=== PATIENT | male | born 1980 | race Two or more races ===

== ENCOUNTER → 2020-10-10 12:03 | Outpatient (BNVA) | payer OTHER, SELFPAY | PROVIDERS: Visit Provider Physician Assistant Medical | DX: M54.5 Low back pain (principal) | CPT/HCPCS: 99202 ==

== ENCOUNTER 2020-10-10 12:29 | Emergency (ER) | payer OTHER, SELFPAY ==
[2020-10-10 13:29] VITALS: BP 145/98; PULSE 72; RESP 18; TEMP 36.7; O2SAT 97; BMI 31.5
[2020-10-10 14:27] VITALS: BP 143/105; PULSE 85; RESP 18; O2SAT 96
--- NOTE | 2020-10-10 14:35 | ED.BACK ---
HPI - Back Pain/Injury General Chief Complaint: Back Pain/Injury Stated Complaint: Back pain, nausea/dizzy Time Seen by Provider: 10/10/20 14:06 Source: patient Mode of arrival: ambulatory History of Present Illness HPI Narrative: 40-year-old male with past medical history of back pain presenting to the ED complaining of acute on chronic left-sided low back pain radiating down left lower extremity s/p moving an AC at work yesterday. Admits felt pain immediately after heavy lifting. Denies direct injury/trauma or fall. Admits to associated paresthesias in feet, and nausea today. Denies fever, chills, weakness, urinary incontinence/retention, abdominal pain MD elicited complaint: back pain and back injury Related Data Previous Rx's Medication Instructions Recorded acetaminophen [Tylenol Extra 500 mg PO Q6H PRN #20 tab 10/10/20 Strength] cyclobenzaprine 5 mg PO Q8H PRN 5 Days #14 tab 10/10/20 lidocaine [Lidoderm] 1 patch TOPICAL DAILY PRN #30 ea 10/10/20 MDD remove after 12 hours naproxen 500 mg PO BID PRN 10 Days #20 tab 10/10/20 ondansetron HCl [Zofran] 4 mg PO Q8H PRN #10 tab 10/10/20 tramadol 50 mg PO Q8H PRN 3 Days #9 tab 10/10/20 Allergies Allergy/AdvReac Type Severity Reaction Status Date / Time No Known Allergies Allergy Verified 10/10/20 13:29 Review of Systems Review of Systems: Constitutional: No Fever, No Chills, No Fatigue, No Malaise Cardiovascular: No Chest Pain, No SOB Respiratory: No Cough, No Dyspnea Gastrointestinal: + Nausea, No Vomiting, No Diarrhea, No Abdominal pain Genitourinary: No Dysuria, No Hematuria,No Urinary Incontinence/retention, No Urgency, No Flank Pain Musculoskeletal: + joint pain, No Myalgias, No Joint Swelling Skin: No Skin Lesions, No rash Neuro: No Weakness, No Numbness, + Paresthesias Yes all other systems are reviewed and are negative Neurologic: Denies Sensory deficit (Neuro) [facility] Past Medical History Attestation statement: The following information was validated with the patient. Social History Social History Advance Directives: Yes Advance Directives Information Provided: Yes Advance Directives on File: No Physical Exam Vital Signs: Vital Signs: Last Vital Signs Temp 98.1 F 10/10/20 13:29 Pulse 85 10/10/20 14:27 Resp 18 10/10/20 14:27 BP 143/105 H 10/10/20 14:27 Pulse Ox 96 10/10/20 14:27 Body Mass Index 31.5 Const: General: cooperative, healthy appearing and no acute distress Orientation/consciousness: patient oriented x3 Limitations: no limitations HENMT: Head: Yes normal to inspection Ears: hearing grossly normal bilaterally General nose exam: Normal external nose present Face and sinus: Yes normal facial exam Eyes: General: appearance normal, both eyes and all related structures EOM: EOMs intact bilaterally Neck: Neck: Yes normal visual inspection, Yes full ROM and Yes no meningeal signs Resp: Effort & Inspection: normal respiratory effort and no respiratory distress Cardio: Rate: regular rate Peripheral pulses: dorsalis pedis present GI: Inspection: Yes normal to inspection Palpation (GI): Soft to palpation, nontender, no guarding and not rigid Back/Spine/Pelvis: Other: No midline thoracic/lumbar spinous tenderness or step-offs. + left-sided lower lumbar MSK tenderness to palpation with visible muscle spasming Skin: Rashes: no rashes Wounds: no wounds Neuro: Other: Ambulating with steady gait, strength intact throughout, no saddle anesthesia General: patient oriented x3, tone normal, moves all extremities and no meningeal signs Gait exam (Neuro): Normal gait present Motor exam (neuro): 5/5 motor strength present throughout and Normal motor muscle tone present throughout Sensory Exam: No Sensory deficit (Neuro) Extrem: General: Yes normal to inspection MDM - Back Pain/Injury MDM Narrative Medical decision making narrative: 40-year-old male with past medical history of back pain presenting to the ED complaining of acute on chronic left-sided low back pain radiating down left lower extremity s/p moving an AC at work yesterday. On exam mildly hypertensive likely from pain, NAD/nontoxic, no midline spinous tenderness, no red flag symptoms, ambulating with steady gait. Likely MSK pain/strain. Low concern for cauda equina/cord compression or fracture. Nausea likely secondary to pain, low concern for appendicitis/diverticulitis or pancreatitis Plan: Symptomatic treatment, SHANTE Jackson home to follow-up with PCP Discharge Plan Discharge Clinical Impression: Strain of lumbar region Qualifiers: Encounter type: initial encounter Qualified Code(s): S39.012A - Strain of muscle, fascia and tendon of lower back, initial encounter Sciatica Qualifiers: Laterality: left Qualified Code(s): M54.32 - Sciatica, left side Patient Disposition: Home, Self-Care Instructions: Acute Low Back Pain (ED) Additional Instructions: Your pain is likely musculoskeletal Zofran as antinausea medication, take as needed Flexeril is a muscle relaxer, take at night as it makes you drowsy, do not drive, drink alcohol, or operate machinery while taking it Naproxen as an anti-inflammatory / pain medication, take with food Lidoderm patches are numbing patches, apply to painful area In addition take Tylenol at home Tramadol as an opiate pain medication, take only when pain is severe in the next 3 days If symptoms persist or worsen, pain becomes unbearable, you developed urinary retention or incontinence, or weakness return to the ED Prescriptions: New ondansetron HCl [Zofran] 4 mg tablet 4 mg PO Q8H PRN (Reason: nausea and vomiting) Qty: 10 RF: 0 acetaminophen [Tylenol Extra Strength] 500 mg tablet 500 mg PO Q6H PRN (Reason: pain or fever) Qty: 20 RF: 0 lidocaine [Lidoderm] 5 % adhesive patch,medicated 1 patch topical DAILY MDD remove after 12 hours PRN (Reason: pain) Qty: 30 RF: 0 naproxen 500 mg tablet 500 mg PO BID PRN (Reason: pain) 10 Days Qty: 20 RF: 0 cyclobenzaprine 5 mg tablet 5 mg PO Q8H PRN (Reason: pain (scale score 7-10)) 5 Days Qty: 14 RF: 0 tramadol 50 mg tablet 50 mg PO Q8H PRN (Reason: pain, severe) 3 Days Qty: 9 RF: 0 Referrals: Physician,Unknown [Primary Care Provider] - 2 days Stand Alone Forms: Work/School Release
== END 2020-10-10 15:03 | disposition home or self-care (01) ==
PROVIDERS: Emergency Provider Emergency Medicine
DX: S39.012A Strain of muscle, fascia and tendon of lower back, initial encounter (principal); M54.32 Sciatica, left side; X50.0XXA Overexertion from strenuous movement or load, initial encounter; Y93.9 Activity, unspecified; Y92.89 Other specified places as the place of occurrence of the external cause; Y99.0 Civilian activity done for income or pay
CPT/HCPCS: 99283

== ENCOUNTER → 2020-10-16 11:09 | Outpatient (BNVA) | payer OTHER, SELFPAY | PROVIDERS: Visit Provider Physician Assistant | DX: M54.16 Radiculopathy, lumbar region (principal) | CPT/HCPCS: 72100; 99203 ==

== ENCOUNTER → 2020-10-23 08:01 | Outpatient (BNVA) | payer OTHER, SELFPAY | PROVIDERS: Visit Provider Physician Assistant Medical | DX: S39.012D Strain of muscle, fascia and tendon of lower back, subsequent encounter (principal); X58.XXXD Exposure to other specified factors, subsequent encounter | CPT/HCPCS: 99213 ==

== ENCOUNTER → 2020-10-30 08:16 | Outpatient (BNVA) | payer OTHER, SELFPAY | PROVIDERS: Visit Provider Physician Assistant Medical | DX: S39.012D Strain of muscle, fascia and tendon of lower back, subsequent encounter (principal); X58.XXXD Exposure to other specified factors, subsequent encounter | CPT/HCPCS: 99213 ==

== ENCOUNTER → 2020-11-07 08:33 | Outpatient (BNVA) | payer OTHER, SELFPAY | PROVIDERS: Visit Provider Physician Assistant Medical | DX: S39.012D Strain of muscle, fascia and tendon of lower back, subsequent encounter (principal); X58.XXXD Exposure to other specified factors, subsequent encounter; M54.16 Radiculopathy, lumbar region | CPT/HCPCS: 99213 ==

== ENCOUNTER → 2020-11-23 08:13 | Outpatient (BNVA) | payer OTHER, SELFPAY | PROVIDERS: Visit Provider Physician Assistant Medical | DX: S33.9XXD Sprain of unspecified parts of lumbar spine and pelvis, subsequent encounter (principal); X58.XXXD Exposure to other specified factors, subsequent encounter; M54.17 Radiculopathy, lumbosacral region | CPT/HCPCS: 99213 ==

== ENCOUNTER 2020-11-24 09:00 | Outpatient (RCR) | payer OTHER, SELFPAY ==
--- NOTE | 2020-10-27 11:35 | MHC.PT.EP ---
[facility] [place] Office [place] Office [place] Office [address] Marie Williamson [address] [phone] F: [phone] F: [phone] F: [phone] F: [phone] Physical Therapy Plan of Care Date of Evaluation: Date of Surgery: N/A Diagnosis: Low back radiculopathy Moving an A/C, picked it up from the floor and received a shooting pain, mostly on the left side. pt reports he went home immediately after the injury occurred. Assessment: Pt is a 40 year old male who presents to therapy with symptoms of lumbar radiculopathy (L>R). The pain started after an accident in work where he picked an A/C up from the floor and received a sharp pain in the back. He dropped the A/C and discontinued work right after the incident. He reports numbness and tingling that travels from the low back into the L LE into the foot. Self reported activity limitations include ability to work, walk long distances and sit or relax >30 min, reports difficulty pushing, pulling, lifting and reaching. reports disrupted sleep. He presents with significant limitation in lumbar extension 2* to pain and has slight limitations in flexion and L lateral flexion. Pt will continue therapy for 2x / week for 4 weeks and will be reassessed to see if further treatment is necessary. Frequency and Duration: The patient will be seen 2x/week for 4 weeks Short Term Goals: Pt will increase lumbar extension ROM to 25% in 2 weeks to promote increased ability to perform work tasks. 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 Senior Care Goals: Pt will report centralization of pain in 4 weeks in order to return to work multimedia production assistant, full duty. Pt will be able to walk >30 min with no pain in 4 weeks to walk longer periods of time for work. Treatment Plan: Modalities to reduce pain, spasms and effusion. Manual therapy to restore motion and function. Therapeutic exercise to improve strength and flexibility. Neuromuscular re-education for posture and balance. Therapeutic activities to return to functional activities of daily living. Electronically signed by: Sindhu Holt PT, DPT Please sign and return to therapist. Thank you for your referral.
== END 2020-12-18 14:57 | disposition home or self-care (01) ==
LOC: HO.PT 09:00
PROVIDERS: Visit Provider Physician Assistant Medical
DX: M54.16 Radiculopathy, lumbar region (principal)
CPT/HCPCS: 97012; 97014; 97110; 97140; 97162; 97535

== ENCOUNTER → 2020-12-01 07:58 | Outpatient (BNVA) | payer OTHER, SELFPAY | PROVIDERS: Visit Provider Physician Assistant Medical | DX: S33.9XXD Sprain of unspecified parts of lumbar spine and pelvis, subsequent encounter (principal); X58.XXXD Exposure to other specified factors, subsequent encounter; M54.17 Radiculopathy, lumbosacral region | CPT/HCPCS: 99213 ==

== ENCOUNTER 2020-12-05 15:26 | Outpatient (REF) | payer OTHER, SELFPAY ==
--- NOTE | ~2020-12-05 | MR_ITS ---
EXAMINATION: MR LUMBAR SPINE WITHOUT CONTRAST CLINICAL INFORMATION: Pain lumbar spine, radiculopathy. COMPARISON: None TECHNIQUE: MRI of the lumbar spine was obtained using routine sequences without contrast. FINDINGS: The lumbar vertebral bodies maintain normal heights and alignment. The disc heights are preserved. No bone marrow edema is seen. The distal spinal cord appears normal. The conus medullaris terminates normally at the L1 level. There is no disc herniation. The spinal canal and neural foramina are patent. No nerve root compression is seen. There is no significant facet degeneration. The visualized paraspinal muscles and intra-abdominal and pelvic contents are within normal limits. MR/MR lumbar spine wo con IMPRESSION: No significant abnormality identified in the lumbar spine. No spinal canal stenosis or nerve root compression.
== END 2020-12-05 15:27 | disposition home or self-care (01) ==
LOC: HO.MRI 15:26
PROVIDERS: Visit Provider Internal Medicine
DX: M54.5 Low back pain (principal)
CPT/HCPCS: 72148

== ENCOUNTER 2022-03-03 03:06 | Emergency (ER) | payer OTHER, SELFPAY ==
--- NOTE | ~2022-03-03 | XR_ITS ---
EXAMINATION: XR CHEST CLINICAL INFORMATION: Shortness of breath. COMPARISON: None TECHNIQUE: 2 views of the chest were obtained. FINDINGS: Normal appearance of the cardiomediastinal structures. No effusions or pneumothoraces. Normal pattern of pulmonary vasculature. No focal pulmonary consolidation. No skeletal abnormalities identified. XR/XR chest 2V IMPRESSION: Normal chest. Lungs clear.
[2022-03-03 03:20] VITALS: BP 143/85; PULSE 83; RESP 18; TEMP 37.2; O2SAT 99; BMI 33.9
--- NOTE | 2022-03-03 03:23 | ECG_ITS ---
Test Reason : chest pain Blood Pressure : / mmHG Vent. Rate : 077 BPM Atrial Rate : 077 BPM P-R Int : 130 ms QRS Dur : 090 ms QT Int : 414 ms P-R-T Axes : 026 031 071 degrees QTc Int : 468 ms Normal sinus rhythm Normal ECG No previous ECGs available Referred By: Generic ED Physician Electronically Signed By:TEODORO JOSHI MD
[2022-03-03 03:42] LABS: MANUAL DIFF FLAG NO
[2022-03-03 03:43] LABS: Basophils Percent Auto 0.3 % (0-2); Eosinophils Percent Auto 0.1 % (0-4); Hematocrit 45.4 % (42.0-52.0); Hemoglobin 15.8 g/dl (14.0-18.0); Imm Gran Abs Auto 0.04 X10*3/uL (0.00-0.03); Imm Gran Pct Auto 0.3 % (0.0-0.4); Lymphocytes Absolute Auto 1.7 X10*3/uL (1.2-4.9); Lymphocytes Percent Auto 14.4 % (20-40); Mean Corpuscular HGB Conc 34.8 g/dl (31.0-36.0); Mean Corpuscular Hemoglobin 29.4 pg (27.0-33.0); Mean Corpuscular Volume 84.5 fL (80.0-98.0); Mean Platelet Volume 9.2 fL (9.4-12.4); Monocytes Absolute Auto 0.6 X10*3/uL (0.1-1.2); Monocytes Percent Auto 4.8 % (2-11); Neutrophils Absolute Auto 9.3 x10*3/uL (2.0-8.3); Neutrophils Percent Auto 80.1 % (45-73); Platelet Count 387 X10*3/uL (160-400); Red Blood Count 5.37 X10*6/uL (4.60-5.80); Red Cell Distribution Width 12.8 % (11.0-16.0); White Blood Count 11.6 X10*3/uL (4.8-10.8)
[2022-03-03 03:59] LABS: Alanine Aminotransferase 13 U/L (0-40); Albumin Level 4.9 g/dL (3.5-5.0); Alkaline Phosphatase 102 U/L (39-117); Anion Gap 20 (12-20); Aspartate Amino Transferase 14 U/L (5-37); Blood Urea Nitrogen 19 mg/dL (9-16); Calcium 10.2 mg/dL (8.4-10.2); Carbon Dioxide 17 mmol/L (22-29); Chloride 105 mmol/L (96-108); Creatinine Clr Calc Pharmacy 75.8; Estimated Glomerular Filt Rate 57; Glucose Random 182 mg/dL (60-115); Potassium 3.6 mmol/L (3.3-5.1); Sodium 138 mmol/L (135-145); Total Protein 7.9 g/dL (6.5-8.0)
--- NOTE | 2022-03-03 04:02 | PC.NURSE ---
Patient alert and oriented. Partner at bedside. Pt c/o chest pain that began 03/02/22 afternoon and has continued on throughout the night. Patient denies n/v/d, nor dizziness. Patient is restless and states he feels a tightness in his chest that 'comes and goes'.
[2022-03-03 04:03] LABS: Troponin-I High Sensitivity < 3.5 ng/L (<3.5-35.0)
[2022-03-03 04:14] VITALS: BP 132/83; PULSE 66; RESP 21; TEMP 37.2; O2SAT 98
[2022-03-03 04:20] LABS: Influenza A PCR NEGATIVE (Negative); Influenza B PCR NEGATIVE (Negative); Resp Syncy Virus RNA Qual PCR NEGATIVE (Negative); SARS COV2 PCR INHOUSE NEGATIVE (Negative)
--- NOTE | 2022-03-03 05:28 | PC.NURSE ---
Patient vomited. Dr Bose notified.
[2022-03-03 05:35] VITALS: TEMP 36.8
--- NOTE | 2022-03-03 05:35 | PC.NURSE ---
Patient is afebrile. Brought a warm blanket and he is resting quietly.
--- NOTE | 2022-03-03 05:49 | ED.CHESTPAIN ---
HPI - Chest Pain General Chief Complaint: Chest Pain Stated Complaint: chest pain, vomiting Time Seen by Provider: 03/03/22 05:44 Source: patient Mode of arrival: ambulatory Limitations: no limitations History of Present Illness HPI narrative: Patient comes to the emergency room complaining of nausea vomiting and chest burning sensation for approximately 10 hours. Patient states that he has been vomiting quite a bit. Denies chest pain or shortness of breath. Denies any diarrhea. Patient states that anything that he tries to eat he vomited. Related Data Previous Rx's Medication Instructions Recorded acetaminophen 500 mg tablet 500 mg PO Q6H PRN pain or fever 10/10/20 (Tylenol Extra Strength) #20 tabs cyclobenzaprine 5 mg tablet 5 mg PO Q8H PRN pain (scale score 10/10/20 7-10) 5 days #14 tabs lidocaine 5 % topical patch 1 patch topical DAILY PRN pain #30 10/10/20 (Lidoderm) ea naproxen 500 mg tablet 500 mg PO BID PRN pain 10 days #20 10/10/20 tabs ondansetron HCl 4 mg tablet 4 mg PO Q8H PRN nausea and 10/10/20 (Zofran) vomiting #10 tabs tramadol 50 mg tablet 50 mg PO Q8H PRN pain, severe 3 10/10/20 days #9 tabs omeprazole 40 mg capsule,delayed 40 mg PO DAILY #30 caps 03/03/22 release ondansetron 4 mg disintegrating 4 mg PO Q6H PRN nausea and 03/03/22 tablet vomiting #14 tabs Allergies Allergy/AdvReac Type Severity Reaction Status Date / Time No Known Allergies Allergy Verified 03/03/22 04:32 Review of Systems Review of Systems: Constitutional : No Weight loss, No Fever, No Chills, No Night Sweats, No Fatigue, No Malaise ENT/Mouth : No Hearing loss, No Ear Pain, No Nasal Congestion, No Sinus Pain, No Hoarseness, No sore throat, No Rhinorrhea, No Swallowing Difficulty Eyes: No Eye Pain, No Swelling, No Redness, No Foreign Body, No Discharge, No Vision Changes Cardiovascular : No Chest Pain but complaining of a sour/burning sensation in the chest radiating from the stomach up, No SOB, No Dyspnea on Exertion, No Orthopnea, No Edema, No Palpitations Respiratory : No Cough, No Sputum, No Wheezing, No Smoke Exposure, No Dyspnea Gastrointestinal : Complaining of nausea vomiting, No Diarrhea, No Constipation, No abdominal Pain, No Hematochezia, No Melena Genitourinary : no irregular bleeding, No Dysuria, No Urinary Frequency, No Hematuria, No Urinary Incontinence, No Urgency, No Flank Pain, No Urinary Flow Changes, No Hesitancy Musculoskeletal : No joint pain, No Myalgias, No Joint Swelling Skin : No Skin Lesions, No rash Neuro : No Weakness, No Numbness, No Paresthesias, No Loss of Consciousness, No Dizziness, No Headache Psych : No Anxiety/Panic, No Depression, No SI/HI/AH/VH, No Social Issues, Heme/Lymph: No Bruising, No Bleeding,No Lymphadenopathy Endocrine : No Polyuria, No Polydipsia, No Temperature Intolerance [facility] Social History Social History Alcohol intake: never Smoked in Last 30 Days: Yes Use of substances other than those prescribed or required for medical reasons: Yes Substance Use Type: Marijuana Advance Directives: No Physical Exam Vital Signs: Vital Signs: Last Vital Signs Temp 97.5 F 03/03/22 06:22 Pulse 63 03/03/22 06:22 Resp 17 03/03/22 06:22 BP 141/92 H 03/03/22 06:22 Pulse Ox 99 03/03/22 06:22 O2 Del Method 03/03/22 06:22 BMI result Body Mass Index 33.9 Const: Other: Appearance: Alert. Oriented X3. No acute distress. Eyes: Pupils equal, round and reactive to light. ENT: Pharynx normal. Neck: Normal inspection. Neck supple. No lymph nodes noted. No crepitus CVS: Normal heart rate and rhythm. Pulses normal. Normal S1 and S2 Respiratory: No respiratory distress. Breath sounds normal. No Wheezing. No rales Abdomen: Soft and nontender. No rigidity. No distention. Skin: Skin warm and dry. Normal skin color. Normal skin turgor. Extremities: No lower extremity edema. No Lacerations. No Rash Neuro: Oriented X 3. No motor deficit. No sensory deficit. Moving all extremities. No slurred speech. CN 2 through 12 grossly intact Psych: calm, cooperative, normal affect Course Course Course Narrative: Patient is nauseous, actively vomiting. Otherwise, patient has no abdominal tenderness on deep palpation. No chest pain. Patient's white blood cell count elevated at 11.6, likely reactive leukocytosis. Lipase pending. COVID negative, chest x-ray negative, troponin negative, EKG within normal limits. Patient receiving IV fluids, Zofran and Pepcid. We will re-evaluate after treatment. Patient states that he does not have any significant chest pain, but he is feels a burning sensation radiating from his stomach up. Patient will be given 1 dose Compazine and GI cocktail. Troponin 2. Pending. Troponin 1. Was negative Sign-out given to my colleague Dr. Dias Medications Administered Discontinued Medications Generic Name Dose Route Start Last Admin Trade Name Freq PRN Reason Stop Dose Admin Famotidine 20 mg 03/03/22 05:48 03/03/22 06:16 Famotidine/Pf 20 Mg/2 Ml Vial IVPUSH 03/03/22 05:49 20 mg ONCE ONE Administration Sodium Chloride 1,000 mls @ 999 mls/hr 03/03/22 05:48 03/03/22 06:16 Ns IVCONT 03/03/22 06:48 999 mls/hr .Q1H1M ONE Administration Ondansetron HCl 4 mg 03/03/22 05:48 03/03/22 06:16 Ondansetron Hcl 4 Mg/2 Ml Vial IVPUSH 03/03/22 05:49 4 mg ONCE ONE Administration Medical Decision Making Medical Decision Making Differential Diagnoses: Differential diagnosis (Gastritis, ACS, peptic ulcer disease, pancreatitis) Lab Attestation: I reviewed the patient's lab results. (White blood cell count elevation likely secondary to reactive leukocytosis constant vomiting) Independent interpretation of EKG, rhythm strip, radiology study: Independent interp EKG,rhythm strip, radiology study I performed an independent interpretation of the: EKG My interpretation is pending rhythm, heart rate 77, no ST segment depression or elevation, no T-wave inversion, QTC 77 Discharge Plan Discharge Clinical Impression: Nausea & vomiting, Acute viral syndrome, GERD (gastroesophageal reflux disease) Patient Disposition: Still a Patient Instructions: Diet for Stomach Ulcers and Gastritis (ED), Gastroesophageal Reflux Disease (ED), Acute Nausea and Vomiting (ED) Additional Instructions: Please follow-up with your primary care physician tomorrow. If you have any worsening or new symptoms, please return to the emergency room or call 911 Prescriptions: New omeprazole 40 mg capsule,delayed release(/EC) 40 mg PO DAILY Qty: 30 0RF ondansetron 4 mg tablet,disintegrating 4 mg PO Q6H PRN (Reason: nausea and vomiting) Qty: 14 0RF No Action ondansetron HCl [Zofran] 4 mg tablet 4 mg PO Q8H PRN (Reason: nausea and vomiting) Qty: 10 0RF acetaminophen [Tylenol Extra Strength] 500 mg tablet 500 mg PO Q6H PRN (Reason: pain or fever) Qty: 20 0RF lidocaine [Lidoderm] 5 % adhesive patch,medicated 1 patch topical DAILY MDD remove after 12 hours PRN (Reason: pain) Qty: 30 0RF Rx Instructions: leave on most painful area for up to 12 hrs naproxen 500 mg tablet 500 mg PO BID PRN (Reason: pain) 10 Days Qty: 20 0RF cyclobenzaprine 5 mg tablet 5 mg PO Q8H PRN (Reason: pain (scale score 7-10)) 5 Days Qty: 14 0RF tramadol 50 mg tablet 50 mg PO Q8H PRN (Reason: pain, severe) 3 Days Qty: 9 0RF
[2022-03-03] MEDS: Famotidine/PF 20 MG/2 ML VIAL IVPUSH (06:16)
[2022-03-03] MEDS: 0.9 % Sodium Chloride 1,000 ML 999 ML IVCONT (06:16)
[2022-03-03] MEDS: ondansetron HCL 4 MG/2 ML VIAL IVPUSH (06:16)
[2022-03-03 06:18] LABS: Lipase 22 U/L (8-78)
[2022-03-03 06:22] VITALS: BP 141/92; PULSE 63; RESP 17; TEMP 36.4; O2SAT 99
[2022-03-03] MEDS: Prochlorperazine Edisylate 10 MG/2 ML VIAL IVPUSH (07:10)
[2022-03-03] MEDS: Lidocaine HCl Viscous 2 % 15 ML SOLUTION MUCOUS MEM (07:11)
[2022-03-03] MEDS: Magnesium Hydrox/Alum Hydrox 30 ML ORAL.SUSP PO (07:11)
[2022-03-03 07:31] VITALS: BP 136/88; PULSE 64; RESP 16; O2SAT 99
[2022-03-03 07:57] LABS: Troponin-I High Sensitivity < 3.5 ng/L (<3.5-35.0)
== END 2022-03-03 09:14 | disposition home or self-care (01) ==
PROVIDERS: Emergency Provider Emergency Medicine
DX: B34.9 Viral infection, unspecified (principal); K21.9 Gastro-esophageal reflux disease without esophagitis; R07.89 Other chest pain; Z20.822 Contact with and (suspected) exposure to COVID-19; Z79.899 Other long term (current) drug therapy
CPT/HCPCS: 0241U; 36415; 71046; 80053; 83690; 84484; 85025; 93005; 96374; 96375; 99284; 99285; J2405